=== PATIENT | female | born 1955 | race Caucasian/White ===

== ENCOUNTER 2020-09-25 15:36 | Inpatient (IN) | payer BC ==
[2020-09-25] VITALS (7 sets, daily range): BP systolic 108–137; BP diastolic 53–73
[~2020-09-25] VITALS: Ht 152.4 cm; Wt 109.9 kg
[~2020-09-25 15:36] MED LIST: heparin 10,000 units/1 ML INJ ONE; heparin, porcine-25,000 units/D5-250ml premix IV ONE; metoprolol tartrate 1mg/ml inj IV ONE; nitroGLYCERIN 0.4mg SUBLingual tab SL ONE
[2020-09-25] MEDS ORDERED: heparin, porcine 5000 units/ml vial IV STA (15:55)
--- NOTE | 2020-09-25 16:00 | NUR ---
heparin 5,000units given per Dr. Rebollar.
--- NOTE | 2020-09-25 16:00 | NUR ---
HEPARIN DRIP STARTED AT 1000 UNITS PER HOUR, AFTER 5000 UNIT BOLUS GIVEN.
[2020-09-25] MEDS ORDERED: aspirin 81mg tab.chew PO ONE (16:05)
--- NOTE | 2020-09-25 16:09 | NUR ---
PATIENT HAS BEEN VACCINATED WITH MODERNA AND IS FULLY VACCINATED PER PATIENT.
--- NOTE | 2020-09-25 16:12 | NUR ---
1600 HEPARIN 5000 UNITS GIVEN PER IV 1604 DR. DUMONT HERE TO SEE PATIENT. 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 IV X 2 STARTED WITH #20 ANGIOI IN LEFT AC AND RIGHT AC. LABS DRAWN. 1606 SL NITRO GIVEN X 1. 1613 METOPROLOL 5 MG GIVEN PER IV. 1620 PATIENT READY FOR TRANFER TO SAND MIXER OPERATOR. O2 APPLIED PER NC AT 2LPM.
[2020-09-25] MEDS ORDERED: nitroGLYCERIN-Tridil 50MG/D5W 250 ML IV ONE (16:13)
[2020-09-25] MEDS ORDERED: midazolam 1 mg/ML 2ml injection ONE (16:13)
[2020-09-25] MEDS ORDERED: heparin 1,000unit/ml 10ml vial 10 ML ONE (16:13)
[2020-09-25] MEDS ORDERED: fentaNYL/PF 50MCG/1 ML 2ML syringe ONE (16:13)
[2020-09-25] MEDS ORDERED: LIDOcaine 1% (10mg/ml)w/preservative injection 20ml MDV ONE (16:13)
[2020-09-25] MEDS ORDERED: iohexol 350 MG/ML 50ML vial IV ONE (16:13)
[2020-09-25] MEDS ORDERED: iohexol 350 MG/1 ML 200ml bottle ONE (16:14)
[2020-09-25 16:21] LABS: BASOPHILS # (AUTO) 0.1 X10'3 (0-0.2); BASOPHILS % (AUTO) 0.7 % (0-1); EOSINOPHILS # (AUTO) 0.1 X10'3 (0-0.9); EOSINOPHILS % (AUTO) 0.9 % (0-6); HEMATOCRIT 40.1 % (35.0-45.0); HEMOGLOBIN 13.8 g/dl (12.0-16.0); LYMPHOCYTES # (AUTO) 1.4 X10'3 (1.1-4.8); LYMPHOCYTES % (AUTO) 11.6 % (21-51); MEAN CORPUSCULAR HGB CONC 34.3 g/dL (33.0-36.5); MEAN CORPUSCULAR VOLUME 96.1 FL (78-98); MEAN PLATELET VOLUME 9.3 FL (7.4-10.4); MONOCYTES # (AUTO) 0.9 X10'3 (0-0.9); MONOCYTES % (AUTO) 7.6 % (2-12); NEUTROPHILS # (AUTO) 9.3 X10'3 (1.8-7.7); NEUTROPHILS % (AUTO) 79.2 % (42-75); PLATELET COUNT 276 X10'3 (140-440); RED BLOOD COUNT 4.18 X10'6 (4.20-5.60); RED CELL DISTRIBUTION WIDTH 13.8 % (11.5-14.5); WHITE BLOOD COUNT 11.8 X10'3 (4.5-11.0)
--- NOTE | 2020-09-25 16:24 | NUR ---
patient to medical laboratory technician.
[2020-09-25] MEDS ORDERED: BACL-11 PO (16:30)
[2020-09-25] MEDS ORDERED: DICL50TA8 PO (16:30)
[2020-09-25] MEDS ORDERED: CYAN-51 PO (16:30)
[2020-09-25] MEDS ORDERED: NITR0.4T51 SL (16:30)
[2020-09-25] MEDS ORDERED: ACET-2778 PO (16:30)
[2020-09-25] MEDS ORDERED: MECL-159 PO (16:30)
[2020-09-25] MEDS ORDERED: CARV3.122 PO (16:30)
[2020-09-25] MEDS ORDERED: INSU100V5 SUBCUT (16:30)
[2020-09-25] MEDS ORDERED: DULA0.75 SQ (16:30)
[2020-09-25] MEDS ORDERED: PYRI100T10 PO (16:30)
[2020-09-25] MEDS ORDERED: HYDR25TA5 PO (16:30)
[2020-09-25] MEDS ORDERED: ASPI81TA52 PO (16:30)
[2020-09-25] MEDS ORDERED: ISOS60TA71 PO (16:30)
[2020-09-25] MEDS ORDERED: INSU100I31 SQ (16:30)
[2020-09-25] MEDS ORDERED: LOSA50TA64 PO (16:30)
[2020-09-25 16:31] LABS: ALANINE AMINOTRANSFERASE 71 U/L (12-78); ALBUMIN 3.3 G/DL (3.4-5.0); ALBUMIN/GLOBULIN RATIO 0.8 (1.1-1.5); ALKALINE PHOSPHATASE 102 IU/L (46-116); ANION GAP 11 (8-16); ASPARTATE AMINO TRANSFERASE 203 U/L (10-37); BILIRUBIN,TOTAL 0.5 MG/DL (0.1-1.0); BLOOD UREA NITROGEN 19 MG/DL (7-18); BUN/CREATININE RATIO 18.6 (6.6-38.0); CHLORIDE 102 MMOL/L (99-107); CREATININE 1.02 MG/DL (0.40-0.90); GLUCOSE 247 MG/DL (70-104); POTASSIUM 3.7 MMOL/L (3.5-5.1); SODIUM 140 MMOL/L (135-145); TOTAL CARBON DIOXIDE 26.6 MMOL/L (24-32); TOTAL PROTEIN 7.7 G/DL (6.4-8.2); eGFR 55 ML/MIN
[2020-09-25] MEDS ORDERED: atropine 0.1mg/ml 10ml syringe ONE (17:20)
[2020-09-25] MEDS ORDERED: iohexol 350MG/ML 100ml bottle IV ONE (17:25)
[2020-09-25] MEDS ORDERED: magnesium 4gm in 100ml NS 100 ML IV PRN (17:55)
[2020-09-25] MEDS ORDERED: nicotine 21mg patch - 24 hr TD ONE (17:55)
[2020-09-25] MEDS ORDERED: magnesium Cl slow-release 64mg tablet PO PRN (17:55)
[2020-09-25] MEDS ORDERED: potassium Cl 20 mEq SR tablet PO PRN ×2 (17:55)
[2020-09-25] MEDS ORDERED: magnesium 2GM in 50ml NS 50 ML IV PRN (17:55)
[2020-09-25] MEDS ORDERED: tirofiban 5mg in NS 100mL 100 ML IV ONE ×2 (17:56→18:57)
[2020-09-25] MEDS: nicotine 21mg patch - 24 hr TD SCH (18:07)
[2020-09-25] MEDS ORDERED: ticagrelor 90mg tablet ONE (18:27)
[2020-09-25] MEDS ORDERED: furosemide 40mg/4ml inj ONE (18:33)
[2020-09-25] MEDS ORDERED: Insulin Reg/NS 100units/100mL 100 ML IV SCH (19:30)
[2020-09-25] MEDS ORDERED: dextrose 50%-water 50ml dispensing syringe IV PRN (19:30)
[2020-09-25] MEDS ORDERED: normal saline 1000ml 1,000 ML IV ONE (19:30)
[2020-09-25] MEDS ORDERED: acetaminophen 325mg tablet PO PRN ×2 (19:30)
[2020-09-25] MEDS ORDERED: magnesium hydroxide 30ml (MOM) UD suspension PO PRN (19:30)
[2020-09-25] MEDS: OXAZEpam 15mg capsule PO PRN (19:39)
[2020-09-25] MEDS: HYDROcodone/acetaminophen 10/325mg tab PO PRN (19:39)
[2020-09-25] MEDS: cyclobenzaprine 10mg tablet PO PRN (19:40)
[2020-09-25] MEDS ORDERED: ticagrelor 90mg tablet PO SCH (20:00)
[2020-09-25] MEDS ORDERED: heparin 25,000 UNIT/250ml bag 250 ML IV SCH (20:05)
[2020-09-25 21:23] LABS: PARTIAL THROMBOPLASTIN TIME 84 SECONDS (22-32)
[2020-09-25] MEDS: docusate sod 100mg capsule PO SCH (23:13)
[2020-09-25] MEDS: tirofiban 5mg in NS 100mL 100 ML IV SCH (23:15)
[2020-09-26] VITALS (27 sets, daily range): BP systolic 89–143; BP diastolic 43–68
[2020-09-26 02:58] LABS: BASOPHILS % (AUTO) 0.3 % (0-1); EOSINOPHILS % (AUTO) 0.4 % (0-6); HEMATOCRIT 37.5 % (35.0-45.0); LYMPHOCYTES # (AUTO) 1.3 X10'3 (1.1-4.8); LYMPHOCYTES % (AUTO) 12.7 % (21-51); MEAN CORPUSCULAR HEMOGLOBIN 32.8 PG (27.0-31.0); MEAN CORPUSCULAR HGB CONC 34.6 g/dL (33.0-36.5); MEAN PLATELET VOLUME 8.6 FL (7.4-10.4); MONOCYTES # (AUTO) 1.1 X10'3 (0-0.9); MONOCYTES % (AUTO) 10.5 % (2-12); NEUTROPHILS % (AUTO) 76.1 % (42-75); PLATELET COUNT 271 X10'3 (140-440); RED BLOOD COUNT 3.95 X10'6 (4.20-5.60); RED CELL DISTRIBUTION WIDTH 13.8 % (11.5-14.5); WHITE BLOOD COUNT 10.5 X10'3 (4.5-11.0)
[2020-09-26 03:10] LABS: PARTIAL THROMBOPLASTIN TIME 39 SECONDS (22-32)
[2020-09-26] MEDS: cyclobenzaprine 10mg tablet PO PRN (03:32)
[2020-09-26 03:33] LABS: BILIRUBIN,TOTAL 0.6 MG/DL (0.1-1.0); BLOOD UREA NITROGEN 15 MG/DL (7-18); BUN/CREATININE RATIO 15.8 (6.6-38.0); CALCIUM 8.5 MG/DL (8.5-10.1); CREATININE 0.95 MG/DL (0.40-0.90); GLUCOSE 106 MG/DL (70-104); TOTAL CARBON DIOXIDE 27.1 MMOL/L (24-32); eGFR 59 ML/MIN
[2020-09-26] MEDS: HYDROcodone/acetaminophen 10/325mg tab PO PRN ×2 (03:33→15:54)
[2020-09-26 03:34] LABS: ALANINE AMINOTRANSFERASE 85 U/L (12-78); ALBUMIN/GLOBULIN RATIO 0.7 (1.1-1.5); ALKALINE PHOSPHATASE 88 IU/L (46-116); ASPARTATE AMINO TRANSFERASE 368 U/L (10-37); TOTAL PROTEIN 7.1 G/DL (6.4-8.2)
[2020-09-26 03:47] LABS: ANION GAP 12 (8-16); CHLORIDE 103 MMOL/L (99-107); POTASSIUM 3.1 MMOL/L (3.5-5.1); SODIUM 142 MMOL/L (135-145)
[2020-09-26] MEDS: tirofiban 5mg in NS 100mL 100 ML IV SCH (04:51)
[2020-09-26] MEDS ORDERED: DOPamine 400mg/D5W 250ml 250 ML IV ONE (05:02)
[2020-09-26] MEDS ORDERED: albumin (Human) 5% 250ml 250 ML IV ONE ×2 (05:03→05:15)
[2020-09-26] MEDS ORDERED: atropine 0.1mg/ml 10ml syringe ONE (05:03)
[2020-09-26] MEDS ORDERED: atropine 1 MG/1 ML vial IV ONE ×2 (05:13→05:15)
[2020-09-26] MEDS ORDERED: normal saline 1000ml 1,000 ML IV ONE (05:15)
[2020-09-26] MEDS: DOPamine 400mg/D5W 250ml 250 ML IV SCH ×2 (05:33→15:00)
[2020-09-26] MEDS: proCHLORperazine 10 MG/2 ml inj IV PRN ×2 (06:35→20:11)
[2020-09-26] MEDS ORDERED: magnesium 2GM in 50ml NS 50 ML IV PRN (07:40)
[2020-09-26] MEDS ORDERED: magnesium 4gm in 100ml NS 100 ML IV PRN (07:40)
[2020-09-26] MEDS: atorvastatin 20mg tablet PO SCH (08:00)
[2020-09-26 08:04] LABS: ISTAT HGB ART 11.9 g/dl (12.0-16.0); ISTAT Hct ART 35 %PCV (35-48); ISTAT O2 SATURATION ARTERIAL 96 % (95-98); ISTAT SOURCE ART
[2020-09-26 08:05] LABS: ISTAT Hct MIX 35 %PCV (35-48); ISTAT O2 SATURATION MIX VENOUS 61 % (60-80); ISTAT SOURCE VEN
[2020-09-26] MEDS: potassium Cl 20mEq/100mL bag 100 ML IV PRN ×4 (08:14→19:18)
[2020-09-26] MEDS ORDERED: non-formulary drug (Acetaminophen (Acetaminophen ER) 1 TAB) PO PRN (08:20)
[2020-09-26] MEDS ORDERED: nitroGLYCERIN 0.4mg SUBLingual tab SL PRN (08:20)
[2020-09-26] MEDS: isosorbide mononitrate 30mg tab.SR.24H PO SCH (08:24)
[2020-09-26] MEDS ORDERED: Dulaglutide (Trulicity) 0.75 MG SQ SCH (08:26)
[2020-09-26] MEDS ORDERED: meclizine 12.5mg tablet PO PRN (08:30)
[2020-09-26] MEDS ORDERED: dextrose 50%-water 50ml dispensing syringe IV PRN ×2 (08:35)
[2020-09-26] MEDS ORDERED: ipratropium/albuterol 3ml nebule NEB PRN (08:35)
[2020-09-26] MEDS ORDERED: MESSAGE TO PHARMACY PO ONE (08:35)
[2020-09-26] MEDS ORDERED: glucagon, human recombinant 1mg kit SUBCUT PRN (08:35)
[2020-09-26] MEDS ORDERED: dextrose ORAL solution 15 GM/59 ML bottle PO PRN ×2 (08:35)
[2020-09-26 09:42] LABS: PHOSPHORUS 3.1 MG/DL (2.3-4.5)
[2020-09-26 09:55] LABS: CLARITY,URINE SLIGHTLY CLOUDY (Clear); COLOR,URINE YELLOW (Yellow); GLUCOSE, URINE NEGATIVE (Neg); KETONES,URINE 15 mg/dl (Neg); LEUKOCYTE ESTERASE ,URINE NEGATIVE (Neg); NITRITES, URINE NEGATIVE (Neg); OCCULT BLOOD,URINE LARGE (Neg); PH,URINE 5.5 (4.8-8.0); PROTEIN,URINE 30 mg/dl (Neg)
[2020-09-26 09:58] LABS: UA COLLECTION TYPE NON-SPECIFIED
[2020-09-26 10:05] LABS: BACTERIA,URINE FEW /HPF (Neg); MUCUS STRANDS FEW /LPF (Neg); SQUAMOUS EPITHELIAL CELL,UR MODERATE /LPF (FEW)
[2020-09-26 10:06] LABS: HYALINE CASTS 0-3 /LPF (NEGATIVE)
[2020-09-26 10:07] LABS: RBC,URINE 50-100 /HPF (0-2)
[2020-09-26] MEDS: ticagrelor 90mg tablet PO SCH ×2 (10:12→20:11)
[2020-09-26] MEDS: insulin glargine (Lantus) pen - multi-dose SQ SCH ×2 (10:38→20:28)
[2020-09-26] MEDS: insulin Lispro (HumaLOG) vial - multi-dose SQ SCH ×3 (10:47→20:30)
[2020-09-26] MEDS ORDERED: nitroGLYCERIN-Tridil 50MG/D5W 250 ML IV ONE (10:54)
[2020-09-26] MEDS ORDERED: midazolam 1 mg/ML 2ml injection ONE (10:54)
[2020-09-26] MEDS ORDERED: iohexol 350MG/ML 100ml bottle IV ONE (10:55)
[2020-09-26] MEDS ORDERED: fentaNYL/PF 50MCG/1 ML 2ML syringe ONE (10:55)
[2020-09-26] MEDS ORDERED: heparin 1,000unit/ml 10ml vial 10 ML ONE (10:55)
[2020-09-26] MEDS ORDERED: LIDOcaine 1% (10mg/ml)w/preservative injection 20ml MDV ONE (11:05)
[2020-09-26 11:29] LABS: HEMOGLOBIN A1C 7.4 % (4.5-6.2)
[2020-09-26 11:38] LABS: TROPONIN I 114.23 NG/ML (0.0-0.05)
[2020-09-26] MEDS ORDERED: heparin 25,000 UNIT/250ml bag 250 ML IV ONE (11:51)
--- NOTE | 2020-09-26 11:58 | NUR ---
DM Consult: Pt admit DX STEMI, HTN, COPD w/ hx T2DM A1C 7.4 s/p cardiac cath this admit per EMR. Possible return to cardiac cath again today per RN; would benefit from DM ed once more stable prior to discharge. Addendum: 09/26/20 at [address] Amended: Links added.
[2020-09-26] MEDS ORDERED: iohexol 350 MG/ML 50ML vial IV ONE (12:22)
[2020-09-26 14:21] LABS: CHOL/HDL RATIO 4.2 (0.00-4.99); CHOLESTEROL 182 MG/DL (0-200); HDL CHOLESTEROL 43 MG/DL (35-60); LDL CHOLESTEROL 115 MG/DL (50-100); TRIGLYCERIDES 118 MG/DL (20-135)
[2020-09-26] MEDS: nicotine 21mg patch - 24 hr TD SCH (14:36)
[2020-09-26] MEDS: docusate sod 100mg capsule PO SCH ×2 (14:41→20:00)
[2020-09-26] MEDS: aspirin 81mg tab.chew PO SCH (14:41)
[2020-09-26] MEDS: cyanocobalamin 500mcg tablet PO SCH (14:42)
--- NOTE | 2020-09-26 15:46 | NUR ---
DM Consult: Addressed; see prior RD note. Addendum: 09/26/20 at [address] Amended: Links added.
[2020-09-26] MEDS ORDERED: heparin 10,000 units/1 ML INJ IV PRN (16:35)
[2020-09-26] MEDS ORDERED: heparin 25,000 UNIT/250ml bag 250 ML IV SCH (16:35)
[2020-09-26 17:43] LABS: MAGNESIUM 1.9 MG/DL (1.5-2.4); POTASSIUM 3.4 MMOL/L (3.5-5.1)
[2020-09-26] MEDS: levoFLOXACIN 500mg tablet PO SCH (18:19)
--- NOTE | 2020-09-26 18:31 | NUR ---
Problems reprioritized. Patient report given, questions answered & plan of care reviewed with Mac RN.
[2020-09-26] MEDS: carVEDilol 3.125mg tablet PO SCH (20:00)
[2020-09-26] MEDS: baclofen 10mg tablet PO SCH (20:11)
[2020-09-27] VITALS (29 sets, daily range): BP systolic 98–139; BP diastolic 42–96
[2020-09-27] MEDS: DOPamine 400mg/D5W 250ml 250 ML IV SCH ×2 (00:31→17:39)
[2020-09-27] MEDS: OXAZEpam 15mg capsule PO PRN ×2 (02:19→08:29)
[2020-09-27 03:01] LABS: BASOPHILS % (AUTO) 0.2 % (0-1); EOSINOPHILS # (AUTO) 0.1 X10'3 (0-0.9); EOSINOPHILS % (AUTO) 0.5 % (0-6); HEMATOCRIT 33.8 % (35.0-45.0); HEMOGLOBIN 11.6 g/dl (12.0-16.0); LYMPHOCYTES # (AUTO) 1.2 X10'3 (1.1-4.8); LYMPHOCYTES % (AUTO) 11.7 % (21-51); MEAN CORPUSCULAR HEMOGLOBIN 32.7 PG (27.0-31.0); MEAN CORPUSCULAR HGB CONC 34.4 g/dL (33.0-36.5); MEAN CORPUSCULAR VOLUME 94.9 FL (78-98); MEAN PLATELET VOLUME 8.6 FL (7.4-10.4); MONOCYTES % (AUTO) 10.1 % (2-12); NEUTROPHILS # (AUTO) 7.7 X10'3 (1.8-7.7); NEUTROPHILS % (AUTO) 77.5 % (42-75); PLATELET COUNT 247 X10'3 (140-440); RED BLOOD COUNT 3.56 X10'6 (4.20-5.60); RED CELL DISTRIBUTION WIDTH 13.8 % (11.5-14.5)
[2020-09-27 03:52] LABS: ALANINE AMINOTRANSFERASE 85 U/L (12-78); ALBUMIN 2.6 G/DL (3.4-5.0); ALBUMIN/GLOBULIN RATIO 0.7 (1.1-1.5); ALKALINE PHOSPHATASE 77 IU/L (46-116); ANION GAP 8 (8-16); ASPARTATE AMINO TRANSFERASE 206 U/L (10-37); BILIRUBIN,TOTAL 0.8 MG/DL (0.1-1.0); BLOOD UREA NITROGEN 13 MG/DL (7-18); BUN/CREATININE RATIO 15.3 (6.6-38.0); CALCIUM 7.7 MG/DL (8.5-10.1); CHLORIDE 105 MMOL/L (99-107); CREATININE 0.85 MG/DL (0.40-0.90); GLUCOSE 181 MG/DL (70-104); MAGNESIUM 2.6 MG/DL (1.5-2.4); POTASSIUM 3.7 MMOL/L (3.5-5.1); SODIUM 138 MMOL/L (135-145); TOTAL CARBON DIOXIDE 24.9 MMOL/L (24-32); TOTAL PROTEIN 6.6 G/DL (6.4-8.2); eGFR 68 ML/MIN
[2020-09-27] MEDS: losartan 50mg tablet PO SCH (08:00)
[2020-09-27] MEDS ORDERED: aspirin 81mg tablet.DR PO SCH (08:00)
[2020-09-27] MEDS: isosorbide mononitrate 30mg tab.SR.24H PO SCH (08:00)
[2020-09-27] MEDS: HYDROchlorothiazide 25mg tablet PO SCH (08:00)
[2020-09-27] MEDS: carVEDilol 3.125mg tablet PO SCH ×2 (08:00→20:48)
[2020-09-27] MEDS: docusate sod 100mg capsule PO SCH ×2 (08:29→20:49)
[2020-09-27] MEDS: ticagrelor 90mg tablet PO SCH ×2 (08:29→20:48)
[2020-09-27] MEDS: cyanocobalamin 500mcg tablet PO SCH (08:29)
[2020-09-27] MEDS: aspirin 81mg tab.chew PO SCH (08:29)
[2020-09-27] MEDS: nicotine 21mg patch - 24 hr TD SCH (08:30)
[2020-09-27] MEDS: pyridoxine 50mg tablet PO SCH (08:40)
[2020-09-27] MEDS: atorvastatin 20mg tablet PO SCH (08:40)
[2020-09-27] MEDS: baclofen 10mg tablet PO SCH ×2 (08:40→20:49)
[2020-09-27] MEDS: insulin glargine (Lantus) pen - multi-dose SQ SCH ×2 (08:43→20:00)
[2020-09-27] MEDS ORDERED: atropine 0.1mg/ml 10ml syringe ONE (09:04)
[2020-09-27] MEDS: HYDROcodone/acetaminophen 10/325mg tab PO PRN ×3 (09:22→23:59)
[2020-09-27] MEDS: insulin Lispro (HumaLOG) vial - multi-dose SQ SCH ×2 (09:28→18:40)
[2020-09-27] MEDS: potassium Cl 20mEq/100mL bag 100 ML IV PRN (09:29)
[2020-09-27] MEDS: levoFLOXACIN 500mg tablet PO SCH (12:13)
--- NOTE | 2020-09-27 13:05 | NUR ---
Patient in room CICU 2011. I have received report from NORMAN Dawn and had the opportunity to ask questions and assume patient care.
--- NOTE | 2020-09-27 17:05 | NUR ---
[facility]. I have received report from NORMAN Yun and had the opportunity to ask questions and assume patient care. Addendum: 09/27/20 at 1806 by Beckie Crabtree RN wrong patient
--- NOTE | 2020-09-27 17:10 | NUR ---
Received pt. Alert and oriented, she was able to scoot herself from gurney to bed, keeping the left leg straight. Left groin art line in place, PIV to right hand with LR at 100ml/hr. Will continue to monitor. Addendum: 09/27/20 at 1801 by Beckie Crabtree RN wrong patient
--- NOTE | 2020-09-27 18:30 | NUR ---
Patient in room PCU 3028. I have received report from PAT AUSTIN and had the opportunity to ask questions and assume patient care.
--- NOTE | 2020-09-27 18:42 | NUR ---
Problems reprioritized. Patient report given, questions answered & plan of care reviewed with NORMAN Xie.
--- NOTE | 2020-09-27 20:45 | NUR ---
Problems reprioritized. Patient report given, questions answered & plan of care reviewed with JULI AUSTIN. PT TRANSFERRED TO [facility] WITH CHART, BELONGINGS, AND MEDS. JULI AUSTIN AT BEDSIDE TO RECEIVE REPORT
[2020-09-27] MEDS: lactobacillus rhamnosus 10,000 MMU CELLS/CAPSULE PO SCH (20:49)
[2020-09-27] MEDS: cyclobenzaprine 10mg tablet PO PRN (23:58)
[2020-09-28 03:00] VITALS: BP 110/60
[2020-09-28] MEDS: DOPamine 400mg/D5W 250ml 250 ML IV SCH (05:01)
[2020-09-28 06:00] VITALS: BP 92/55
--- NOTE | 2020-09-28 06:12 | NUR ---
Patient in room PCU 3028. I have received report from NORMAN Maya and had the opportunity to ask questions and assume patient care.
[2020-09-28 07:20] LABS: BASOPHILS % (AUTO) 0.2 % (0-1); EOSINOPHILS # (AUTO) 0.2 X10'3 (0-0.9); HEMATOCRIT 35.2 % (35.0-45.0); HEMOGLOBIN 11.9 g/dl (12.0-16.0); LYMPHOCYTES # (AUTO) 1.1 X10'3 (1.1-4.8); LYMPHOCYTES % (AUTO) 13.1 % (21-51); MEAN CORPUSCULAR HEMOGLOBIN 32.9 PG (27.0-31.0); MEAN CORPUSCULAR HGB CONC 33.9 g/dL (33.0-36.5); MEAN CORPUSCULAR VOLUME 97.2 FL (78-98); MEAN PLATELET VOLUME 8.8 FL (7.4-10.4); MONOCYTES # (AUTO) 0.8 X10'3 (0-0.9); MONOCYTES % (AUTO) 9.5 % (2-12); NEUTROPHILS # (AUTO) 6.2 X10'3 (1.8-7.7); NEUTROPHILS % (AUTO) 75.2 % (42-75); PLATELET COUNT 261 X10'3 (140-440); RED BLOOD COUNT 3.62 X10'6 (4.20-5.60); RED CELL DISTRIBUTION WIDTH 13.7 % (11.5-14.5); WHITE BLOOD COUNT 8.2 X10'3 (4.5-11.0)
[2020-09-28 07:48] LABS: ALANINE AMINOTRANSFERASE 81 U/L (12-78); ALBUMIN 2.6 G/DL (3.4-5.0); ALBUMIN/GLOBULIN RATIO 0.6 (1.1-1.5); ALKALINE PHOSPHATASE 84 IU/L (46-116); ANION GAP 10 (8-16); ASPARTATE AMINO TRANSFERASE 100 U/L (10-37); BILIRUBIN,TOTAL 0.9 MG/DL (0.1-1.0); BLOOD UREA NITROGEN 16 MG/DL (7-18); BUN/CREATININE RATIO 15.4 (6.6-38.0); CALCIUM 8.4 MG/DL (8.5-10.1); CHLORIDE 105 MMOL/L (99-107); CREATININE 1.04 MG/DL (0.40-0.90); GLUCOSE 151 MG/DL (70-104); MAGNESIUM 2.3 MG/DL (1.5-2.4); SODIUM 140 MMOL/L (135-145); TOTAL CARBON DIOXIDE 24.6 MMOL/L (24-32); eGFR 54 ML/MIN
[2020-09-28] MEDS: cyanocobalamin 500mcg tablet PO SCH (08:45)
[2020-09-28] MEDS: nicotine 21mg patch - 24 hr TD SCH (08:45)
[2020-09-28] MEDS: docusate sod 100mg capsule PO SCH (08:47)
[2020-09-28] MEDS: atorvastatin 20mg tablet PO SCH (08:49)
[2020-09-28] MEDS: lactobacillus rhamnosus 10,000 MMU CELLS/CAPSULE PO SCH (08:50)
[2020-09-28] MEDS: HYDROchlorothiazide 25mg tablet PO SCH (08:50)
[2020-09-28] MEDS: isosorbide mononitrate 30mg tab.SR.24H PO SCH (08:51)
[2020-09-28] MEDS: aspirin 81mg tab.chew PO SCH (08:51)
[2020-09-28] MEDS: carVEDilol 3.125mg tablet PO SCH (08:51)
[2020-09-28] MEDS: baclofen 10mg tablet PO SCH (08:52)
[2020-09-28] MEDS: ticagrelor 90mg tablet PO SCH (08:52)
[2020-09-28 08:53] VITALS: BP_SYST 120
[2020-09-28] MEDS: pyridoxine 50mg tablet PO SCH (08:53)
[2020-09-28] MEDS: losartan 50mg tablet PO SCH (08:53)
[2020-09-28] MEDS: insulin glargine (Lantus) pen - multi-dose SQ SCH (09:01)
[2020-09-28] MEDS: levoFLOXACIN 500mg tablet PO SCH (11:59)
[2020-09-28] MEDS ORDERED: ROSU40TA PO (14:08)
[2020-09-28] MEDS ORDERED: NICO-687 TD (14:08)
[2020-09-28] MEDS ORDERED: TICA90TA PO (14:08)
--- NOTE | 2020-09-28 18:17 | NUR ---
Patient stable for discharge per MD orders. PIV discontinued intact. All telemetry equipment removed and returned to telemetry office. All discharge instructions reviewed with patient and family. All questions answered to patient satisfaction. Patient expressed understanding of instructions. 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
== END 2020-09-28 15:44 | disposition home or self-care (01) | DRG 247 ==
LOC: ER 15:36 → ED HOLD 17:51 → CICU 2S 19:13 → PCU 3S 09-27 21:20
PROVIDERS: ADMIT Internal Medicine Cardiovascular Disease; ATTEND Internal Medicine Cardiovascular Disease
PROC: 4A023N8 Measurement of Cardiac Sampling and Pressure, Bilateral, Percutaneous Approach (ICD-10-PCS; principal; 2020-09-25)
PROC: 027035Z Dilation of Coronary Artery, One Artery with Two Drug-eluting Intraluminal Devices, Percutaneous Approach (ICD-10-PCS; 2020-09-25)
PROC: B2111ZZ Fluoroscopy of Multiple Coronary Arteries using Low Osmolar Contrast (ICD-10-PCS; 2020-09-25)
PROC: B2151ZZ Fluoroscopy of Left Heart using Low Osmolar Contrast (ICD-10-PCS; 2020-09-25)
PROC: 02703ZZ Dilation of Coronary Artery, One Artery, Percutaneous Approach (ICD-10-PCS; 2020-09-26)
PROC: 4A023N7 Measurement of Cardiac Sampling and Pressure, Left Heart, Percutaneous Approach (ICD-10-PCS; 2020-09-26)
PROC: B2111ZZ Fluoroscopy of Multiple Coronary Arteries using Low Osmolar Contrast (ICD-10-PCS; 2020-09-26)
PROC: B240ZZ3 Ultrasonography of Single Coronary Artery, Intravascular (ICD-10-PCS; 2020-09-26)
DX: I21.19 ST elevation (STEMI) myocardial infarction involving other coronary artery of inferior wall (principal); Q24.5 Malformation of coronary vessels; I44.2 Atrioventricular block, complete; T82.867A Thrombosis due to cardiac prosthetic devices, implants and grafts, initial encounter; Z68.42 Body mass index [BMI] 45.0-49.9, adult; E11.9 Type 2 diabetes mellitus without complications; E78.5 Hyperlipidemia, unspecified; I44.0 Atrioventricular block, first degree; F17.210 Nicotine dependence, cigarettes, uncomplicated; M54.9 Dorsalgia, unspecified; E66.9 Obesity, unspecified; I10 Essential (primary) hypertension; I25.10 Atherosclerotic heart disease of native coronary artery without angina pectoris; J44.9 Chronic obstructive pulmonary disease, unspecified; Z79.02 Long term (current) use of antithrombotics/antiplatelets; Z83.3 Family history of diabetes mellitus; Z88.2 Allergy status to sulfonamides; Z98.891 History of uterine scar from previous surgery; Z79.899 Other long term (current) drug therapy; Z82.49 Family history of ischemic heart disease and other diseases of the circulatory system; Z71.6 Tobacco abuse counseling; R11.0 Nausea; Y92.230 Patient room in hospital as the place of occurrence of the external cause; Y84.0 Cardiac catheterization as the cause of abnormal reaction of the patient, or of later complication, without mention of misadventure at the time of the procedure; R50.9 Fever, unspecified
CPT/HCPCS: 92920; 92978; 93458; 93460; 96374; 99285; C9606; 36415; 71045; 76937; 80053; 80061; 81001; 82803; 82948; 83036; 83735; 83880; 84100; 84132; 84484; 85014; 85025; 85347; 85610; 85730; 87081; 87088; 93005; 94760; 99152; 99153; A4620; A6258; C1725; C1751; C1753; C1769; C1874; C1894; C9600; G0378; J0461; J0780; J1265; J1644; J1815; J1940; J2001; J2250; J3010; J3246; J3475; J3480; J3490; J7030; J7040; P9045; Q9967